=== PATIENT | male | born 1960 | race Two or more races ===

== ENCOUNTER 2017-03-27 11:42 | Inpatient (IN) | payer MEDICAID ==
[~2017-03-27] VITALS: Ht 160 cm; Wt 74.8 kg
[2017-03-27] MEDS ORDERED: LISI-186 PO (11:55)
[2017-03-27] MEDS ORDERED: AMLO10TA80 PO (11:55)
[2017-03-27] MEDS ORDERED: HYDR12.529 PO (11:55)
[2017-03-27] MEDS ORDERED: METF500T4 PO (11:55)
[2017-03-27] MEDS ORDERED: ASPIRIN 81MG TABLET PO ONE (12:15)
[2017-03-27] MEDS ORDERED: NITROGLYCERIN 0.4MG TABLET SL SL PRN (12:15)
[2017-03-27 12:37] LABS: BASOPHILS % 0.3 % (0.0-2.0); EOSINOPHILS % 0.8 % (0.0-5.0); HEMATOCRIT. 47.4 % (42.0-52.0); HEMOGLOBIN. 16.2 g/dL (14.0-18.0); LYMPHOCYTES % 33.5 % (20.0-50.0); MEAN CORPUSCULAR HEMOGLOBIN 29.6 pg (28.0-32.0); MEAN CORPUSCULAR VOLUME 86.8 fL (80.0-94.0); MEAN PLATELET VOLUME 6.8 fl (7.4-10.4); NEUTROPHILS % 59.4 % (40.0-76.0); PLATELET 234 x1000/uL (130-400); RED BLOOD CELL COUNT 5.46 mill/uL (4.7-6.1); RED CELL DISTRIBUTION WIDTH 13.6 % (11.6-14.6)
[2017-03-27 12:38] LABS: INR 1.1; PROTHROMBIN TIME 11.4 sec (9.4-11.6)
[2017-03-27 12:47] LABS: CARBON DIOXIDE 28 mEq/L (21-32); CHLORIDE 104 mEq/L (98-107); TROPONIN I < 0.02 ng/mL (0.00-0.04)
[2017-03-27] MEDS ORDERED: ENOXAPARIN 100MG/ML SYR SUBCUT ONE (13:45)
[2017-03-27] MEDS ORDERED: CLONIDINE 0.1MG TABLET PO PRN ×3 (15:00→17:45)
[2017-03-27] MEDS ORDERED: DIPHENHYDRAMINE 50MG/ML VIAL IV PRN (15:00)
[2017-03-27] MEDS ORDERED: ACETAMINOPHEN 325MG TABLET PO PRN (15:00)
[2017-03-27] MEDS ORDERED: HYDROCODONE/ACETAMINOPHEN 5/325MG TABLET PO PRN (15:00)
[2017-03-27] MEDS ORDERED: IPRATROPIUM/ALBUTEROL 0.5-3(2.5)MG/3ML NEB INH PRN (15:00)
[2017-03-27] MEDS ORDERED: ONDANSETRON HCL 4MG/2ML VIAL IV PRN (15:00)
[2017-03-27] MEDS: POTASSIUM CHLORIDE 20MEQ TABLET SR PO SCH (17:45)
[2017-03-27] MEDS: DILTIAZEM HCL 30MG TABLET PO SCH (18:17)
[2017-03-27 21:45] VITALS: BP 104/80
[2017-03-27 22:00] VITALS: BP 104/80
[2017-03-27] MEDS ORDERED: INFLUENZA VIRUS VACCINE 0.5ML SYR IM ONE (23:30)
[2017-03-27] MEDS ORDERED: PNEUMOCOCCAL 23-VAL P-SAC VAC 0.5 ML IM ONE (23:30)
[2017-03-28] VITALS: BP 111/73
[2017-03-28] MEDS: DILTIAZEM HCL 30MG TABLET PO SCH ×3 (00:29→12:23)
[2017-03-28 04:00] VITALS: BP 115/74
[2017-03-28] MEDS: ENOXAPARIN 80MG/0.8ML SYR SUBCUT SCH ×2 (05:48→17:18)
[2017-03-28] MEDS ORDERED: DEXTROSE 50% WATER 50ML SYRINGE IV PRN (06:30)
[2017-03-28 06:46] LABS: BASOPHILS % 0.5 % (0.0-2.0); EOSINOPHILS % 1.4 % (0.0-5.0); HEMATOCRIT. 46.8 % (42.0-52.0); HEMOGLOBIN. 15.9 g/dL (14.0-18.0); LYMPHOCYTES % 39.1 % (20.0-50.0); MEAN CORPUSCULAR HEMOGLOBIN 29.6 pg (28.0-32.0); MEAN CORPUSCULAR VOLUME 87.3 fL (80.0-94.0); MEAN PLATELET VOLUME 7.3 fl (7.4-10.4); MONOCYTES % 7.9 % (2.0-8.0); NEUTROPHILS % 51.1 % (40.0-76.0); PLATELET 239 x1000/uL (130-400); RED BLOOD CELL COUNT 5.36 mill/uL (4.7-6.1)
[2017-03-28] MEDS: BLOOD SUGAR DIAGNOSTIC STRIP TEST SCH ×2 (06:57→12:56)
[2017-03-28 07:26] LABS: CLARITY URINE CLEAR (CLEAR); COLOR URINE YELLOW (YELLOW); GLUCOSE URINE NEGATIVE (NEGATIVE); KETONES URINE NEGATIVE (NEGATIVE); LEUKOCYTE ESTERASE URINE NEGATIVE (NEGATIVE); NITRITE URINE NEGATIVE (NEGATIVE); OCCULT BLOOD URINE NEGATIVE (NEGATIVE); PROTEIN URINE NEGATIVE (NEGATIVE); SPECIFIC GRAVITY URINE 1.017 (1.005-1.030); UROBILINOGEN URINE 0.2 E.U./dL (0.2-1.0)
[2017-03-28 07:45] LABS: *AMPHETAMINES SCREEN URINE NEGATIVE (NEGATIVE); *BARBITURATES SCREEN URINE NEGATIVE (NEGATIVE); *BENZODIAZEPINES SCREEN URINE NEGATIVE (NEGATIVE); *COCAINE SCREEN URINE NEGATIVE (NEGATIVE); CANNABINOID URINE SCREEN NEGATIVE (NEGATIVE); METHADONE URINE SCREEN NEGATIVE (NEGATIVE); OPIATES URINE SCREEN NEGATIVE (NEGATIVE); PHENCYCLIDINE URINE SCREEN NEGATIVE (NEGATIVE)
[2017-03-28] MEDS: INSULIN LISPRO 100 UNITS/ML SUBCUT SCH ×2 (08:10→12:56)
[2017-03-28 08:14] LABS: CARBON DIOXIDE 26 mEq/L (21-32); CHLORIDE 105 mEq/L (98-107); CREATINE KINASE 85 IU/L (39-308); CREATINE KINASE MB FRACTION 1.2 ng/mL (0.5-3.6); HDL CHOLESTEROL 42 mg/dL (40-59); LDL CHOLESTEROL 89 mg/dL (5-100); TROPONIN I < 0.02 ng/mL (0.00-0.04)
[2017-03-28 08:18] VITALS: BP 103/72
[2017-03-28] MEDS: POTASSIUM CHLORIDE 20MEQ TABLET SR PO SCH ×2 (08:58→17:17)
[2017-03-28] MEDS ORDERED: LISINOPRIL 5MG TABLET PO SCH (09:00)
[2017-03-28] MEDS ORDERED: AMLODIPINE 10MG TABLET PO SCH (09:00)
[2017-03-28] MEDS ORDERED: HYDROCHLOROTHIAZIDE 12.5MG CAPSULE PO SCH (09:00)
[2017-03-28 12:00] VITALS: BP 109/64
[2017-03-28] MEDS ORDERED: POTASSIUM CHLORIDE 20MEQ TABLET SR PO NR (13:45)
[2017-03-28 15:51] VITALS: BP 105/60
[2017-03-28 16:00] VITALS: BP 105/69
[2017-03-28] MEDS ORDERED: DILTIAZEM HCL 60MG TABLET PO SCH (18:00)
== END 2017-03-28 18:10 | disposition home or self-care (01) | DRG 198 ==
LOC: ER 13:46 → 7WST 13:47 → ER 13:56 → ENRESERV 18:12
PROVIDERS: ADMIT Internal Medicine; ATTEND Internal Medicine
DX: I24.9 Acute ischemic heart disease, unspecified (principal); I11.9 Hypertensive heart disease without heart failure; I48.91 Unspecified atrial fibrillation; E11.9 Type 2 diabetes mellitus without complications; E78.00 Pure hypercholesterolemia, unspecified; Z79.84 Long term (current) use of oral hypoglycemic drugs; Z79.899 Other long term (current) drug therapy
CPT/HCPCS: 36415; 71010; 80053; 80061; 80305; 81003; 82550; 82553; 82962; 83735; 83880; 84443; 84484; 85025; 85379; 85610; 87040; 87086; 90686; 90732; 93005; 93306; 96372; 99291; J1650

== ENCOUNTER 2018-08-19 11:49 | Emergency (ER) | payer MEDICAID ==
[~2018-08-19] VITALS: Ht 157.5 cm; Wt 75.0 kg
[~2018-08-19 11:49] MED LIST: AMLO10TA80 PO; HYDR12.529 PO; LISI-186 PO; METF-414 PO
[2018-08-19] MEDS ORDERED: TETRACAINE 0.5% OPHTH DROPS 4ML OP ONE (15:45)
[2018-08-19] MEDS ORDERED: FLUORESCEIN SODIUM 1MG/STRIP OP ONE (15:45)
[2018-08-19] MEDS ORDERED: BALANCED SALT IRRIG SOLN 15ML IO ONE (15:45)
[2018-08-19 16:37] VITALS: BP 117/73
== END 2018-08-19 16:43 | disposition home or self-care (01) ==
LOC: ER 11:49
DX: S05.01XA Injury of conjunctiva and corneal abrasion without foreign body, right eye, initial encounter (principal); I10 Essential (primary) hypertension; W22.8XXA Striking against or struck by other objects, initial encounter; Y93.89 Activity, other specified; Y92.89 Other specified places as the place of occurrence of the external cause; Y99.8 Other external cause status; Z98.890 Other specified postprocedural states; Z79.899 Other long term (current) drug therapy
CPT/HCPCS: 99283

== ENCOUNTER 2018-10-04 08:51 | Emergency (ER) | payer MEDICAID ==
[~2018-10-04] VITALS: Ht 157.5 cm; Wt 74.0 kg
[2018-10-04] MEDS ORDERED: IBUPROFEN 600MG TABLET PO ONE (11:00)
[2018-10-04 11:25] VITALS: BP 127/84
== END 2018-10-04 11:36 | disposition home or self-care (01) ==
LOC: ER 08:51
DX: J02.9 Acute pharyngitis, unspecified (principal); I10 Essential (primary) hypertension; Z98.890 Other specified postprocedural states
CPT/HCPCS: 87070; 87430; 99283